=== PATIENT | female | born 1980 | race Caucasian/White ===

== ENCOUNTER 2016-09-22 15:29 | Emergency (ER) | payer OTHER ==
[2016-09-22 17:40] LABS: HEMOGLOBIN 11.7 gm/dl (12.3-15.3); RED BLOOD COUNT 3.82 M/UL (4.00-5.10); WHITE BLOOD COUNT 4.3 K/UL (4.5-11.0)
[2016-09-22 18:02] LABS: BUN/CREATININE RATIO 13 (0-10)
== END 2016-09-22 19:30 | disposition home or self-care (01) ==
LOC: ER1 15:29
PROVIDERS: Emergency Medicine
DX: J10.1 Influenza due to other identified influenza virus with other respiratory manifestations (principal); J40 Bronchitis, not specified as acute or chronic; Z86.711 Personal history of pulmonary embolism; Z79.01 Long term (current) use of anticoagulants; Z88.2 Allergy status to sulfonamides; Z79.899 Other long term (current) drug therapy
CPT/HCPCS: 36415; 71020; 80053; 84484; 84703; 85025; 85379; 93005; 94664; 99285

== ENCOUNTER → 2016-09-22 | Outpatient (CLI) | payer OTHER ==
[~2016-09-22] MED LIST: TYLENOL 325MG325 MG PO; XARELTO15 MG PO; XARELTO20 MG PO
== END ==
LOC: HEART 5 09-08 10:00
DX: R00.0 Tachycardia, unspecified (principal); R00.2 Palpitations
CPT/HCPCS: 93306

== ENCOUNTER → 2020-07-03 | Outpatient (CLI) | payer BC ==
[2020-07-03 14:34] LABS: HEMOGLOBIN 13.1 gm/dl (12.3-15.3); WHITE BLOOD COUNT 6.8 K/UL (4.5-11.0)
== END ==
LOC: LAB 13:58
PROVIDERS: Nurse Practitioner Family
DX: M79.662 Pain in left lower leg (principal)
CPT/HCPCS: 36415; 85025; 85379; 85610; 85730

== ENCOUNTER → 2020-07-05 | Outpatient (CLI) | payer SELFPAY | LOC: US 13:34 | DX: R79.89 Other specified abnormal findings of blood chemistry (principal) | CPT/HCPCS: 93971 ==

== ENCOUNTER → 2020-12-25 | Outpatient (CLI) | payer BC | LOC: RAD 14:20 | DX: R05 Cough (principal) | CPT/HCPCS: 71046 ==

== ENCOUNTER 2021-03-01 12:13 | Emergency (ER) | payer SELFPAY ==
[2021-03-01 12:59] LABS: HEMOGLOBIN 13.6 gm/dl (12.3-15.3); RED BLOOD COUNT 4.12 M/UL (4.00-5.10); WHITE BLOOD COUNT 3.8 K/UL (4.5-11.0)
[2021-03-01 13:23] LABS: BUN/CREATININE RATIO 13 (0-10)
[2021-03-01] MEDS ORDERED: EC-NAPROXEN500 MG PO (17:33)
== END 2021-03-01 17:38 | disposition home or self-care (01) ==
LOC: ER1 12:13
PROVIDERS: Physician Assistant Medical
DX: R07.89 Other chest pain (principal); I10 Essential (primary) hypertension
CPT/HCPCS: 71045; 80053; 82550; 82553; 83874; 84439; 84443; 84484; 85025; 85379; 99285

== ENCOUNTER → 2021-07-26 | Outpatient (CLI) | payer BC ==
[~2021-07-26] MED LIST changes: +EC-NAPROXEN500 MG PO
== END ==
LOC: HEART 5 13:12
DX: R00.2 Palpitations (principal); I47.1 Supraventricular tachycardia

== ENCOUNTER 2022-03-24 20:36 | Emergency (ER) | payer BC | END 2022-03-24 23:05 | disposition home or self-care (01) | LOC: ER1 20:36 | DX: S09.90XA Unspecified injury of head, initial encounter (principal); Z88.2 Allergy status to sulfonamides; W21.05XA Struck by basketball, initial encounter; Y93.67 Activity, basketball; Y92.830 Public park as the place of occurrence of the external cause | CPT/HCPCS: 70450; 72125; 99283 ==

== ENCOUNTER → 2022-03-27 | Outpatient (CLI) | payer BC | LOC: KOH-I 15:11 | DX: S09.90XA Unspecified injury of head, initial encounter (principal); R47.9 Unspecified speech disturbances | CPT/HCPCS: 70450 ==